=== PATIENT | female | born 1990 | race Caucasian/White ===

== ENCOUNTER 2018-07-07 02:16 | Emergency (ER) | payer BC ==
[2018-07-07] MEDS ORDERED: NA CHLORIDE 0.9% 1,000 ML ONE (03:26)
[2018-07-07 03:44] LABS: Urine Blood NEGATIVE (NEG); Urine Glucose NEGATIVE (NEG); Urine Protein NEGATIVE (NEG); Urine pH 6.5 (5.0-7.0)
[2018-07-07 03:51] LABS: BUN Blood Urea Nitrogen 20 mg/dL (7-18); Bicarbonate 29 mmol/L (21-32); Glucose Level 112 mg/dL (74-106); Potassium 3.8 mmol/L (3.5-5.1); Sodium Level 139 mmol/L (136-145)
[2018-07-07 03:53] LABS: Urine Bacteria 20-50 /HPF (<20); Urine Culture Reflex Order REFLEXED; Urine RBC NONE SEEN /HPF (NONE SEEN)
--- NOTE | 2018-07-07 05:06 | EDPHYS ---
Physician Documentation [facility] Name: Jody Hough Age: 27 yrs Sex: Female : 1990 Arrival Date: 07/07/2018 Time: 02:18 Bed 13 Private MD: ED Physician Chandu Morris HPI: 07/07 05:02 This 27 yrs old Female presents to ER via Ambulatory with complaints of gs POSSIBLE MEDICATION REACTION,RECTAL BLEEDING HEMORROIDS. 05:02 Onset: The symptoms/episode began/occurred acutely, just prior to arrival. Severity of gs symptoms: At their worst the symptoms were moderate in the emergency department the symptoms are unchanged. The patient has experienced similar episodes in the past, a few times. PLACE SOME PREPARATION h ON HEMORRHOIDS STARTED TO FEEL STRANGE ANXIOUS LIGHT HEADED HEART RACING. 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 - Social history:: Smoking status: Patient/guardian denies using tobacco, Patient/guardian denies using alcohol. - Ebola Screening: : No symptoms or risks identified at this time. ROS: 05:02 All other systems are negative. gs Exam: 05:02 Head/Face: Normocephalic, atraumatic. Eyes: Pupils equal round and reactive to light, gs extra-ocular motions intact. Lids and lashes normal. Conjunctiva and sclera are non-icteric and not injected. Cornea within normal limits. Periorbital areas with no swelling, redness, or edema. ENT: Nares patent. No nasal discharge, no septal abnormalities noted. Tympanic membranes are normal and external auditory canals are clear. Oropharynx with no redness, swelling, or masses, exudates, or evidence of obstruction, uvula midline. Mucous membranes moist. Neck: Trachea midline, no thyromegaly or masses palpated, and no cervical lymphadenopathy. Supple, full range of motion without nuchal rigidity, or vertebral point tenderness. No Meningismus. Chest/axilla: Normal chest wall appearance and motion. Nontender with no deformity. No lesions are appreciated. Respiratory: Lungs have equal breath sounds bilaterally, clear to auscultation and percussion. No rales, rhonchi or wheezes noted. No increased work of breathing, no retractions or nasal flaring. Abdomen/GI: Soft, non-tender, with normal bowel sounds. No distension or tympany. No guarding or rebound. No evidence of tenderness throughout. Back: No spinal tenderness. No costovertebral tenderness. Full range of motion. Skin: Warm, dry with normal turgor. Normal color with no rashes, no lesions, and no evidence of cellulitis. MS/ Extremity: Pulses equal, no cyanosis. Neurovascular intact. Full, normal range of motion. Neuro: Awake and alert, GCS 15, oriented to person, place, time, and situation. Cranial nerves II-XII grossly intact. Motor strength 5/5 in all extremities. Sensory grossly intact. Cerebellar exam normal. Normal gait. 05:02 Constitutional: The patient appears alert, awake. 05:02 Cardiovascular: Rate: tachycardic, Rhythm: regular. Vital Signs: 02:25 BP 139 / 79; Pulse 110; Resp 18; Temp 98.8(O); Pulse Ox 99% on R/A; Weight 59.42 kg jb4 (R); Height 5 ft. 5 in. (165.10 cm) (R); Pain 0/10; 04:00 BP 113 / 69; Pulse 88; Resp 16; Pulse Ox 99% on R/A; jb4 05:00 BP 100 / 69; Pulse 72; Resp 16; Pulse Ox 99% on R/A; jb4 02:25 Body Mass Index 21.80 (59.42 kg, 165.10 cm) jb4 MDM: 02:59 Patient medically screened. 05:02 Data reviewed: vital signs, nurses notes. Response to treatment: the patient's symptoms gs have markedly improved after treatment, the patient's symptoms have resolved after treatment, and as a result, I will discharge patient. 07/07 03:02 Order name: CBC with Diff; Complete Time: 05:01 07/07 03:02 Order name: Basic Metabolic Panel; Complete Time: 04:06 07/07 03:02 Order name: Urine Microscopic Only; Complete Time: 04:06 07/07 03:19 Order name: Urine Dipstick--Ancillary (enter results); Complete Time: 04:06 [facility] 07/07 03:19 Order name: Urine --Ancillary (enter results); Complete Time: 04:06 [facility] 07/07 03:55 Order name: Urine Culture [facility] 07/07 03:02 Order name: Urine Test (obtain specimen); Complete Time: 03:22 07/07 03:02 Order name: Urine Dipstick-Ancillary (obtain specimen); Complete Time: 03:22 07/07 03:02 Order name: EKG - Nurse/Tech; Complete Time: 03:22 Administered Medications: 03:24 Drug: NS 0.9% 1000 ml Route: IV; Rate: 1 bolus; Site: right antecubital; jb4 04:00 Follow up: Response: No adverse reaction; IV Status: Completed infusion jb4 Disposition: 07/07/18 05:05 Discharged to Home. 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 - Condition is Stable. - Discharge Instructions: Hemorrhoids, [id number]. - Prescriptions for Vanessa- Riki Kit 2-2 % Rectal kit - apply 1 application by TOPICAL route 2 times per day; 14 unit. Colace 100 mg Oral Tablet - take 1 tablet by ORAL route every 12 hours; 14 tablet. - Medication Reconciliation Form, Thank You Letter, Antibiotic Education, Prescription Opioid Use form. - Follow up: Private Physician; When: 2 - 3 days; Reason: Re-evaluation by your physician. Signatures: Dis[facility] Chris Quijano RN RN jb4 Chandu Morris MD MD Corrections: (The following items were deleted from the chart) 05:23 05:05 07/07/2018 05:05 Discharged to Home. Impression: Adverse effect of predominantly jb4 alpha-adrenoreceptor agonists; Hemorrhoids and perianal venous thrombosis. Condition is Stable. Forms are Medication Reconciliation Form, Thank You Letter, Antibiotic Education, Prescription Opioid Use. Follow up: Private Physician; When: 2 - 3 days; Reason: Re-evaluation by your physician. gs
--- NOTE | 2018-07-07 05:06 | ER ---
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 After that I developed chest pain to the right of my chest. I think I was just freaking myself out and having a panic attack, but I just wanted to come and get checked out because of what I was reading online I was afraid it could be an allergic reaction. 02:25 Transition of care: patient was not received from another setting of care. Onset of jb4 symptoms was July 07, 2018. Risk Assessment: Do you want to hurt yourself or someone else? Patient reports no desire to harm self or others. Initial Sepsis Screen: Does the patient meet any 2 criteria? HR > 90 bpm. Yes Does the patient have a suspected source of infection? No. Patient's initial sepsis screen is negative. Care prior to arrival: None. 02:25 Method Of Arrival: Ambulatory jb4 02:25 Acuity: BRIGIDA 3 jb4 Triage Assessment: 02:25 General: Appears in no apparent distress. uncomfortable, Behavior is cooperative, jb4 anxious. Pain: Complains of pain in anterior aspect of right upper chest Pain does not radiate. Pain currently is 0 out of 10 on a pain scale. at worst was 2 out of 10 on a pain scale. Quality of pain is described as squeezing, Pain began 2 hours ago. EENT: No signs and/or symptoms were reported regarding the EENT system. Neuro: Level of Consciousness is awake, alert, obeys commands, Oriented to person, place, time, situation. Cardiovascular: Heart tones S1 S2 present Patient's skin is warm and dry. Respiratory: Airway is patent Respiratory effort is even, unlabored, Respiratory pattern is regular, symmetrical. GI: No signs and/or symptoms were reported involving the gastrointestinal system. : No signs and/or symptoms were reported regarding the genitourinary system. Derm: Skin is intact, Skin is pink, warm \T\ dry. Musculoskeletal: Circulation, motion, and sensation intact. 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 - Social history:: Smoking status: Patient/guardian denies using tobacco, Patient/guardian denies using alcohol. - Ebola Screening: : No symptoms or risks identified at this time. Screenin:25 Abuse screen: Denies threats or abuse. Nutritional screening: No deficits noted. jb4 Tuberculosis screening: No symptoms or risk factors identified. Fall Risk None identified. Assessment: 02:25 General: see triage assessment.. jb4 03:30 Reassessment: Patient appears in no apparent distress at this time. Patient and/or jb4 family updated on plan of care and expected duration. Pain level reassessed. Patient is alert, oriented x 3, equal unlabored respirations, skin warm/dry/pink. 04:30 Reassessment: Patient appears in no apparent distress at this time. Patient and/or jb4 family updated on plan of care and expected duration. Pain level reassessed. Patient is alert, oriented x 3, equal unlabored respirations, skin warm/dry/pink. 05:00 Reassessment: Patient appears in no apparent distress at this time. Patient and/or jb4 family updated on plan of care and expected duration. Pain level reassessed. Patient is alert, oriented x 3, equal unlabored respirations, skin warm/dry/pink. Vital Signs: 02:25 BP 139 / 79; Pulse 110; Resp 18; Temp 98.8(O); Pulse Ox 99% on R/A; Weight 59.42 kg jb4 (R); Height 5 ft. 5 in. (165.10 cm) (R); Pain 0/10; 04:00 BP 113 / 69; Pulse 88; Resp 16; Pulse Ox 99% on R/A; jb4 05:00 BP 100 / 69; Pulse 72; Resp 16; Pulse Ox 99% on R/A; jb4 02:25 Body Mass Index 21.80 (59.42 kg, 165.10 cm) jb4 ED Course: 02:18 Patient arrived in ED. es 02:25 Chris Quijano, RN is Primary Nurse. jb4 02:25 Arm band placed on left wrist. jb4 02:25 Patient has correct armband on for positive identification. Bed in low position. Call jb4 light in reach. Side rails up X 1. Pulse ox on. NIBP on. 02:41 Chandu Morris MD is Attending Physician. 02:43 Triage completed. jb4 03:27 EKG done, by ED staff. lt1 03:27 Inserted saline lock: 20 gauge in right antecubital area, using aseptic technique. lt1 03:27 Initial lab(s) drawn, by ga, sent to lab. lt1 05:00 No provider procedures requiring assistance completed. IV discontinued, intact, jb4 bleeding controlled. Administered Medications: 03:24 Drug: NS 0.9% 1000 ml Route: IV; Rate: 1 bolus; Site: right antecubital; jb4 04:00 Follow up: Response: No adverse reaction; IV Status: Completed infusion jb4 Outcome: 05:05 Discharge ordered by . 05:23 Discharged to home ambulatory. jb4 05:23 Condition: stable 05:23 Discharge instructions given to patient, Instructed on discharge instructions, follow up and referral plans. medication usage, Demonstrated understanding of instructions, follow-up care, medications, Prescriptions given X 2. 05:23 Patient left the ED. jb4 Signatures: Irena Ghosh James, RN RN jb Chandu Morris MD MD [facility] Sue lt
--- NOTE | 2018-07-07 14:01 | EKG ---
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
== END 2018-07-07 05:23 | disposition home or self-care (01) ==
LOC: ER 02:16
DX: K64.5 Perianal venous thrombosis (principal); T44.6X5A Adverse effect of alpha-adrenoreceptor antagonists, initial encounter
CPT/HCPCS: 36415; 80048; 81003; 81015; 81025; 85025; 87086; 87088; 93005; J7030